=== PATIENT | born 1990 | race American Indian/Alaskan Native ===

== ENCOUNTER 2017-08-01 05:15 | Emergency (ER) | payer SELFPAY ==
[2017-08-01 05:40] VITALS: BP 128/84
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
== END 2017-08-01 09:08 | disposition home or self-care (01) ==
LOC: ED 05:15
DX: T76.21XA Adult sexual abuse, suspected, initial encounter (principal)
CPT/HCPCS: 99282